=== PATIENT | female | born 1965 ===

== ENCOUNTER → 2017-06-16 | Emergency (ER) | payer MEDICAID ==
[2017-06-16 10:17] VITALS: BP 148/83; PULSE 58; RESP 18; TEMP 97.9; O2SAT 99
--- NOTE | 2017-06-16 15:48 | RAD ---
PROCEDURE: Right Ankle Radiographs. HISTORY: chronic pain- h/o surgery in 2016 COMPARISON: 02/23/2016 FINDINGS: BONES: Status post open reduction and internal fixation in the distal fibula and medial malleolus. There is no acute displaced fracture or bone destruction. Bone alignment is normal. There is mild periarticular bone demineralization No evidence of screw fracture or hardware complications. JOINTS: Normal. No osteoarthritis. Ankle mortise maintained. Talar dome intact SOFT TISSUES: There is mild medial malleolar soft tissue swelling. There are tiny densities in the soft tissues medial to the medial malleolus. OTHER FINDINGS: None. IMPRESSION: Status post open reduction and internal fixation in the distal fibula and medial malleolus. No evidence of hardware complications. Mild medial malleolar soft tissue swelling and tiny densities medial to the medial malleolus.
--- NOTE | 2017-06-17 16:19 | C.PDOC ---
History Of Present Illness 51 year old female presents to the ED for evaluation of right ankle pain which has worsened over the past week. Patient underwent surgery to the ankle in 2016 and follows up with Dr. José regularly. She denies recent trauma, extremity numbness/weakness, and has not taken any medicine to manage symptoms. Chief Complaint (Nursing): Lower Extremity Problem/Injury History Per: Patient History/Exam Limitations: no limitations Onset/Duration Of Symptoms: Days (1 week ) Current Symptoms Are (Timing): Worse Additional History Per: Patient - Ankle/Foot Description Of Injury: denies: Fell, Twisted Past Medical History Reviewed: Historical Data, Nursing Documentation, Vital Signs Vital Signs: Last Vital Signs Temp 97.9 F 06/16/17 10:12 Pulse 58 L 06/16/17 10:12 Resp 18 06/16/17 10:12 BP 148/83 06/16/17 10:12 Pulse Ox 99 06/17/17 16:28 - Medical History PMH: Anxiety, Asthma, Depression, HTN, Migraine, Seizures Denies: Chronic Kidney Disease Surgical History: No Surg Hx - [facility] Procedures CLOSED ENDOSCOPIC BIOPSY OF LARGE INTESTINE (03/18/14) ENDOSC POLYPECTOMY OF LG INTEST (03/18/14) ESOPHAGOGASTRODUODENOSCOPY [EGD] W/CLOSED BIOPSY (03/18/14) Family History: States: Unknown Family Hx - Social History Hx Tobacco Use: No Hx Alcohol Use: No Hx Substance Use: No - Immunization History Hx Tetanus Toxoid Vaccination: Yes Hx Influenza Vaccination: No Hx Pneumococcal Vaccination: No Review Of Systems Musculoskeletal: Positive for: Other (right ankle pain ) Neurological: Negative for: Weakness, Numbness Physical Exam - Physical Exam Appears: Non-toxic, No Acute Distress Skin: Normal Color, Dry, No Ecchymosis, Other (well-healed surgical scar to right ankle) Extremity: Normal ROM, Capillary Refill (less than 2 seconds ) Neurological/Psych: Oriented x3, Normal Speech, Normal Cognition Gait: Steady ED Course And Treatment O2 Sat by Pulse Oximetry: 99 (on RA) Pulse Ox Interpretation: Normal - Other Rad right ankle XR X-Ray: Interpreted by Me, Viewed By Me, Read By Radiologist Interpretation: PROCEDURE: Right Ankle Radiographs. HISTORY: chronic pain- h/ o surgery in 2016. COMPARISON: 02/23/2016. FINDINGS: BONES: Status post open reduction and internal fixation in the distal fibula and medial malleolus. There is no acute displaced fracture or bone destruction. Bone alignment is normal. There is mild periarticular bone demineralization No evidence of screw fracture or hardware complications. JOINTS: Normal. No osteoarthritis. Ankle mortise maintained. Talar dome intact. SOFT TISSUES: There is mild medial malleolar soft tissue swelling. There are tiny densities in the soft tissues medial to the medial malleolus. OTHER FINDINGS: None. IMPRESSION: Status post open reduction and internal fixation in the distal fibula and medial malleolus. No evidence of hardware complications. Mild medial malleolar soft tissue swelling and tiny densities medial to the medial malleolus. Medical Decision Making Medical Decision Making: Right ankle XR ordered and reviewed. Patient eloped from the ED. Disposition - Disposition Disposition Time: 11:00 Condition: GOOD Forms: [facility] (Nepali) - Clinical Impression Clinical Impression: Ankle pain - Scribe Statement The provider has reviewed the documentation as recorded by the Scribe (Yris Chaudhry) Provider Attestation: All medical record entries made by the Scribe were at my direction and personally dictated by me. I have reviewed the chart and agree that the record accurately reflects my personal performance of the history, physical exam, medical decision making, and the department course for this patient. I have also personally directed, reviewed, and agree with the discharge instructions and disposition.
== END | disposition left against medical advice (07) ==
LOC: C.ER 09:56
DX: M25.571 Pain in right ankle and joints of right foot (principal)

== ENCOUNTER 2017-10-26 11:22 | Emergency (ER) | payer MEDICAID ==
[2017-10-26 11:33] VITALS: TEMP 98.2
[2017-10-26 11:59] LABS: BASO % 1.2 % (0.0-2.0); EOS # 0.1 K/uL (0.0-0.7); EOS % 2.7 % (0.0-4.0); HEMOGLOBIN 13.2 g/dL (11.0-16.0); LYMPH # 0.6 K/uL (1.0-4.3); MEAN CELL VOLUME 90.9 fL (81.0-99.0); MEAN CORPUSCULAR HEMOGLOBIN 30.4 pg (27.0-31.0); MEAN CORPUSCULAR HGB CONC 33.4 g/dL (33.0-37.0); MEAN PLATELET VOLUME 8.9 fL (7.2-11.7); MONO # 0.4 K/uL (0.0-0.8); MONO % 11.7 % (0.0-10.0); NEUT # 2.3 K/uL (1.8-7.0); NEUT % 66.4 % (50.0-75.0); RBC 4.33 Mil/uL (3.80-5.20); WHITE BLOOD COUNT 3.5 K/uL (4.8-10.8)
[2017-10-26 12:08] LABS: ALB/GLOB RATIO 1.3 (1.0-2.1); ALBUMIN 4.3 g/dL (3.5-5.0); ALT/SGPT 12 U/L (9-52); AST/SGOT 14 U/L (14-36); BLOOD UREA NITROGEN 7 mg/dL (7-17); CALCIUM 9.1 mg/dl (8.6-10.4); GFR AFRICAN-AMERICAN > 60; GFR NON-AFRICAN AMERICAN > 60
[2017-10-26 13:35] VITALS: BP 110/74; PULSE 74; RESP 20; O2SAT 98
--- NOTE | 2017-10-26 13:54 | C.PDOC ---
History Of Present Illness 52 year old female presents to the emergency department with complaints of a dry cough persisting for the past three days, as well as a sharp chest pain only when she coughs. Patient confirms nausea, but denies vomiting, recent travel, and sick contact. Patient reports that she took cough medications over the counter with some relief. Chief Complaint (Nursing): Shortness Of Breath History Per: Patient History/Exam Limitations: no limitations Onset/Duration Of Symptoms: Days (3) Current Symptoms Are (Timing): Still Present Quality: Sharp, "Pain" Associated Symptoms: Nausea, Other (chest pain upon coughing) Exacerbating Factors: Other (coughing) Past Medical History Reviewed: Historical Data, Nursing Documentation, Vital Signs Vital Signs: Last Vital Signs Temp 98.2 F 10/26/17 11:28 Pulse 74 10/26/17 13:34 Resp 20 10/26/17 13:34 BP 110/74 10/26/17 13:34 Pulse Ox 98 10/26/17 15:15 - Medical History PMH: Anxiety, Asthma, Depression, HTN, Migraine, Seizures Denies: Chronic Kidney Disease Surgical History: No Surg Hx - [facility] Procedures CLOSED ENDOSCOPIC BIOPSY OF LARGE INTESTINE (03/18/14) ENDOSC POLYPECTOMY OF LG INTEST (03/18/14) ESOPHAGOGASTRODUODENOSCOPY [EGD] W/CLOSED BIOPSY (03/18/14) Family History: States: No Known Family Hx - Social History Hx Tobacco Use: No Hx Alcohol Use: No Hx Substance Use: No - Immunization History Hx Tetanus Toxoid Vaccination: Yes Hx Influenza Vaccination: No Hx Pneumococcal Vaccination: No Review Of Systems Except As Marked, All Systems Reviewed And Found Negative. Cardiovascular: Positive for: Chest Pain (upon coughing) Respiratory: Positive for: Cough Gastrointestinal: Positive for: Nausea. Negative for: Vomiting Physical Exam - Physical Exam Appears: Non-toxic, No Acute Distress Chest: Symmetrical Cardiovascular: Rhythm Regular Respiratory: Normal Breath Sounds Gastrointestinal/Abdominal: Normal Exam Extremity: Normal ROM ED Course And Treatment - Laboratory Results Result Diagrams: 10/26/17 11:50 10/26/17 11:50 ECG: Interpreted By Me, Viewed By Me ECG Rhythm: Sinus Rhythm (78) ECG Interpretation: Normal O2 Sat by Pulse Oximetry: 98 (RA) Pulse Ox Interpretation: Normal - Radiology CXR: Interpreted by Me, Viewed By Me, Read By Radiologist CXR Interpretation: Yes: No Acute Disease Medical Decision Making Medical Decision Making: Plan: EKG CMP Troponin CBC X-Ray Chest Two Views Disposition - Disposition Referrals: [facility] [Outside] [facility] [Outside] Disposition: HOME/ ROUTINE Disposition Time: 12:30 Condition: GOOD Additional Instructions: Thank you for letting us take care of you today. The emergency medical care you received today was directed at your acute symptoms. If you were prescribed any medication, please fill it and take as directed. It may take several days for your symptoms to resolve. Return to the Emergency Department if your symptoms worsen, do not improve, or if you have any other problems. Please contact your doctor or call one of the physicians/clinics you have been referred to that are listed on the Patient Visit Information form that is included in your discharge packet. Bring any paperwork you were given at discharge with you along with any medications you are taking to your follow up visit. Our treatment cannot replace ongoing medical care by a primary care provider (PCP) outside of the emergency department. Thank you for allowing the [facility] team to be part of your care today. Follow up with the clinic in 3-4 days for re-evaluation and further management. Prescriptions: Azithromycin [Zithromax] 250 mg PO DAILY #6 tab Instructions: Acute Bronchitis Forms: [facility] (Korean) - Clinical Impression Clinical Impression: Cough - Scribe Statement The provider has reviewed the documentation as recorded by the Scribe (Jeronimo Santiago) Provider Attestation: All medical record entries made by the Scribe were at my direction and personally dictated by me. I have reviewed the chart and agree that the record accurately reflects my personal performance of the history, physical exam, medical decision making, and the department course for this patient. I have also personally directed, reviewed, and agree with the discharge instructions and disposition.
--- NOTE | 2017-10-26 15:01 | RAD ---
HISTORY: cough r/o infiltrate COMPARISON: Chest radiograph dated 07/27/2014. TECHNIQUE: Chest PA and lateral FINDINGS: LUNGS: No active pulmonary disease. PLEURA: No significant pleural effusion identified. No pneumothorax apparent. CARDIOVASCULAR: Atherosclerotic aortic calcifications. Cardiomediastinal silhouette within normal limits chest. OSSEOUS STRUCTURES: No significant abnormalities. VISUALIZED UPPER ABDOMEN: Normal. OTHER FINDINGS: None. IMPRESSION: No active disease.
--- NOTE | 2017-10-27 18:22 | CARD ---
APPROVED REPORT EKG Measurement Heart [id number] <Conclusion> Normal sinus rhythm Moderate voltage criteria for LVH, may be normal variant Borderline ECG
== END 2017-10-26 13:33 | disposition home or self-care (01) ==
LOC: C.ER 11:22
DX: R05 Cough (principal)

== ENCOUNTER 2017-11-03 09:47 | Emergency (ER) | payer MEDICAID ==
[2017-11-03 10:40] VITALS: O2SAT 100
[2017-11-03] MEDS ORDERED: Albuterol 0.083% Inhal Sol (2.5 mg/3 mL) UD INH STA (11:19)
[2017-11-03] MEDS ORDERED: Albuterol-Ipratrop 3 mg / 0.5 (3 ml) UD ONE (11:33)
[2017-11-03 11:39] LABS: BASO # 0.1 K/uL (0.0-0.2); BASO % 0.7 % (0.0-2.0); EOS % 0.2 % (0.0-4.0); HEMOGLOBIN 12.8 g/dL (11.0-16.0); LYMPH # 1.1 K/uL (1.0-4.3); LYMPH % 11.7 % (20.0-40.0); MEAN CELL VOLUME 89.6 fL (81.0-99.0); MEAN CORPUSCULAR HEMOGLOBIN 30.6 pg (27.0-31.0); MEAN CORPUSCULAR HGB CONC 34.1 g/dL (33.0-37.0); MEAN PLATELET VOLUME 8.9 fL (7.2-11.7); MONO # 0.6 K/uL (0.0-0.8); MONO % 6.4 % (0.0-10.0); NEUT # 7.6 K/uL (1.8-7.0); RBC 4.19 Mil/uL (3.80-5.20); RED CELL DISTRIBUTION WIDTH 13.8 % (11.5-14.5); WHITE BLOOD COUNT 9.3 K/uL (4.8-10.8)
[2017-11-03 11:47] LABS: INR 1.1; PROTHROMBIN TIME 12.1 SECONDS (9.7-12.2)
[2017-11-03 11:58] LABS: ALB/GLOB RATIO 1.3 (1.0-2.1); ALBUMIN 4.3 g/dL (3.5-5.0); ALT/SGPT 11 U/L (9-52); AST/SGOT 20 U/L (14-36); BLOOD UREA NITROGEN 11 mg/dL (7-17); CALCIUM 9.4 mg/dl (8.6-10.4); GFR AFRICAN-AMERICAN > 60; GFR NON-AFRICAN AMERICAN > 60
--- NOTE | 2017-11-03 12:48 | RAD ---
HISTORY: chest pain COMPARISON: 10/26/2017 TECHNIQUE: Chest PA and lateral FINDINGS: LUNGS: No active pulmonary disease. PLEURA: No significant pleural effusion identified. No pneumothorax apparent. CARDIOVASCULAR: Normal. OSSEOUS STRUCTURES: No significant abnormalities. VISUALIZED UPPER ABDOMEN: Normal. OTHER FINDINGS: None. IMPRESSION: No active disease.
--- NOTE | 2017-11-03 15:02 | C.PDOC ---
History Of Present Illness 52yo female, presents to ED for a cough which was initially nonproductive but is now associated with clear sputum with 1 episode of blood tinged sputum. Patient states she was evaluated 8 days ago was was diagnosed with bronchitis; reports she has completed her prescribed antibiotics course. She was evaluated by her PMD 5 days ago and was informed to continue her antibiotics. She denies any fever, chills, chest pain, shortness of breath, and offers no other medical complaints. Time Seen by Provider: 11/03/17 11:04 Chief Complaint (Nursing): Cough, Cold, Congestion History Per: Patient History/Exam Limitations: no limitations Onset/Duration Of Symptoms: Days Current Symptoms Are (Timing): Still Present Associated Symptoms: Cough, Sputum Additional History Per: Patient Past Medical History Reviewed: Historical Data, Nursing Documentation, Vital Signs Vital Signs: Last Vital Signs Temp 98.5 F 11/03/17 15:11 Pulse 86 11/03/17 15:11 Resp 18 11/03/17 15:11 BP 128/68 11/03/17 15:11 Pulse Ox 100 11/03/17 15:25 - Medical History PMH: Anxiety, Asthma, Depression, HTN, Migraine, Seizures Denies: Chronic Kidney Disease Surgical History: No Surg Hx - [facility] Procedures CLOSED ENDOSCOPIC BIOPSY OF LARGE INTESTINE (03/18/14) ENDOSC POLYPECTOMY OF LG INTEST (03/18/14) ESOPHAGOGASTRODUODENOSCOPY [EGD] W/CLOSED BIOPSY (03/18/14) Family History: States: Unknown Family Hx - Social History Hx Tobacco Use: No Hx Alcohol Use: No Hx Substance Use: No - Immunization History Hx Tetanus Toxoid Vaccination: Yes Hx Influenza Vaccination: No Hx Pneumococcal Vaccination: No Review Of Systems Except As Marked, All Systems Reviewed And Found Negative. Constitutional: Negative for: Fever, Chills Cardiovascular: Negative for: Chest Pain Respiratory: Positive for: Cough, Sputum (1 ep blood tinged). Negative for: Shortness of Breath Gastrointestinal: Negative for: Abdominal Pain Physical Exam - Physical Exam Appears: Non-toxic, No Acute Distress Skin: Normal Color, Warm, Dry Head: Atraumatic, Normacephalic Eye(s): bilateral: Normal Inspection, PERRL Throat: Normal, No Erythema, No Exudate Neck: Normal ROM, Supple Chest: Symmetrical Cardiovascular: Rhythm Regular Respiratory: Normal Breath Sounds, No Wheezing Gastrointestinal/Abdominal: Normal Exam, Soft, No Tenderness Back: Normal Inspection Extremity: Normal ROM, No Deformity Neurological/Psych: Oriented x3 ED Course And Treatment - Laboratory Results Result Diagrams: 11/03/17 11:34 11/03/17 11:34 ECG: Interpreted By Me, Viewed By Me ECG Rhythm: Sinus Rhythm ECG Interpretation: Normal Interpretation Of ECG: Normal intervals, normal axis, LVH, no ST/T changes Rate From EC O2 Sat by Pulse Oximetry: 100 (RA) Pulse Ox Interpretation: Normal Medical Decision Making Medical Decision Making: Impression: Cough Plan: -- Labs -- CXR -- Duoneb 2.5mg INH Time: 1340 Upon re-evaluation, patient states after she received the breathing treatment, she has been having palpitations. EKG ordered Time: 1500 EKG reviewed with no acute findings. Patient reports she feels much better and has not had any cough episodes insce initial presentation. Patient informed the blood in her sputum could be from ruptured capillaries due to forceful coughing and not a presentation of hemoptysis. Patient stable for discharge home, instructed to follow up with PMD in 2-3 days. Disposition Counseled Patient/Family Regarding: Studies Performed, Diagnosis, Need For Followup, Rx Given - Disposition Referrals: Maddy Bailey MD [Staff Provider] - Disposition: HOME/ ROUTINE Disposition Time: 15:03 Condition: STABLE Additional Instructions: follow up with your doctor in 2 days call to make an appointment take medications as prescribed return to ER if symptoms worsens or progress Prescriptions: Albuterol Sulfate [Proventil Hfa] 2 puff IH QID PRN #1 [id number] PRN Reason: Cough And Congestion Benzonatate [Tessalon Perles] 100 mg PO BID PRN #14 tab PRN Reason: Cough And Congestion Instructions: Cough, Adult (DC) Forms: [facility] (Occitan), General Discharge Instructions - Clinical Impression Clinical Impression: Cough - Scribe Statement The provider has reviewed the documentation as recorded by the Scribe (Barbara Spence) Provider Attestation: All medical record entries made by the Scribe were at my direction and personally dictated by me. I have reviewed the chart and agree that the record accurately reflects my personal performance of the history, physical exam, medical decision making, and the department course for this patient. I have also personally directed, reviewed, and agree with the discharge instructions and disposition.
[2017-11-03 15:12] VITALS: BP 128/68; PULSE 86; RESP 18; TEMP 98.5
--- NOTE | 2017-11-04 14:50 | CARD ---
APPROVED REPORT EKG Measurement Heart [id number] <Conclusion> Normal sinus rhythm Moderate voltage criteria for LVH, may be normal variant Borderline ECG
== END 2017-11-03 15:18 | disposition home or self-care (01) ==
LOC: C.ER 09:47
DX: R05 Cough (principal); I10 Essential (primary) hypertension; J45.909 Unspecified asthma, uncomplicated

== ENCOUNTER 2018-02-13 22:01 | Emergency (ER) | payer MEDICAID ==
[2018-02-13 22:20] VITALS: BP 180/124; PULSE 95; TEMP 98.3
[2018-02-13 22:41] VITALS: RESP 20; O2SAT 96
== END 2018-02-13 22:38 | disposition left against medical advice (07) ==
LOC: C.ER 22:01
DX: Z02.89 Encounter for other administrative examinations (principal); R10.9 Unspecified abdominal pain

== ENCOUNTER 2018-09-14 11:47 | Outpatient (CLI) | payer MEDICAID | END 2018-09-14 11:48 | disposition home or self-care (01) | LOC: C.DEXAIC 11:47 | DX: Z87.39 Personal history of other diseases of the musculoskeletal system and connective tissue (principal) ==